=== PATIENT | female | born 1950 | race Caucasian/White ===

== ENCOUNTER 2016-12-22 20:09 | Emergency (ER) | payer MEDICARE, OTHER ==
--- NOTE | ~2016-12-22 | EKG ---
PATIENT: JUAN MARCH UNIT #: [id number] Ventricular Rate: 71 BPM Atrial Rate: 71 BPM P-R Interval: 150 ms QRS Duration: 74 ms Q-T Interval: 416 ms QTC Calculation(Bezet): 452 ms P [place]: 37 degrees Calculated R [place]: -13 degrees Calculated T [place]: 18 degrees Diagnosis Line: Normal sinus rhythm Diagnosis Line: Minimal voltage criteria for LVH, may be normal Diagnosis Line: variant Diagnosis Line: Inferior infarct , age undetermined Diagnosis Line: Abnormal ECG Diagnosis Line: When compared with ECG of 27-MAY-2016 18:15, Diagnosis Line: Inferior infarct is now Present Diagnosis Line: Confirmed by ANNIKA SIMPSON MD ([id number]) on Diagnosis Line: 12/23/2016 4:36:20 PM INTERPRETING MD: TATIANA MELO
--- NOTE | ~2016-12-22 | MR18 ---
[facility] A Service of [facility] RADIOLOGY TEXT RESULTS PATIENT: JUAN MARCH LOCATION: [place] : 51 UNIT #: [id number] AGE: [address]: Robert Raines MD SEX: F ORDER DR: [id number] [facility] [address] [place], [place] [address] [id number] E MR#: [id number] Acc #: [id number] NAME: JUAN MARCH. : 1950 SEX: F STUDY DATE/TIME: 12/22/2016 22:03 UNIT: [facility] ROOM: STUDY DESCRIPTION: MR Brain Wo Contrast Attending Physician: Robert Raines M.D. Ordering Physician: Robert Raines M.D. Primary Care Physician: Casandra Saunders M.D. MRI CENTER REPORT This report is preliminary unless electronic signature is present. EXAM Brain MRI without contrast PROCEDURE Routine unenhanced brain MRI 12/22/[address] 12/22/2016 CLINICAL HISTORY New onset left arm weakness and numbness this morning. FINDINGS There is no MR evidence of acute ischemia or other restricted diffusion. There is no intracranial hemorrhage or hydrocephalus or extraaxial fluid collection. There is minimal nonspecific white matter change. Brain parenchymal signal is certainly normal for age. Normal flow voids are seen in the cerebral vessels. Bone marrow signal is normal and the extracranial structures are normal. IMPRESSION No evidence of hemorrhage or mass or acute ischemia. Mild nonspecific white matter change, essentially normal for age brain MRI without contrast. Dictated by... Albert Reyes M.D. THIS IS AN ELECTRONICALLY VERIFIED REPORT Albert Reyes M.D. at 12/29/2016 10:43 AM JENNIFER/catracho [facility] A Service of [facility] RADIOLOGY TEXT RESULTS PATIENT: JUAN MARCH LOCATION: [place] : 51 UNIT #: [id number] AGE: [address]: Robert Raines MD SEX: F ORDER DR: TD: 12/23/2016 08:58 JOB #: [id number] MRI CENTER REPORT Page 1 of 1 COPY
--- NOTE | ~2016-12-22 | CR63 ---
[facility] A Service of [facility] & [facility] RADIOLOGY TEXT RESULTS PATIENT: JUAN MARCH LOCATION: [facility] : 51 UNIT #: [id number] AGE: [address]: Robert Raines MD SEX: F ORDER DR: [id number] [facility] [address] [place], [place] [address] [id number] E MR#: [id number] Acc #: [id number] NAME: JUAN MARCH : 1950 SEX: F STUDY DATE/TIME: 12/22/2016 21:36 UNIT: [facility] ROOM: STUDY DESCRIPTION: CR Chest 2 View Attending Physician: Robert Raines M.D. Ordering Physician: Karolina De M.D. Primary Care Physician: Casandra Saunders M.D. MEDICAL IMAGING REPORT This report is preliminary unless electronic signature is present EXAM Chest x-ray 12/22 HISTORY Chest pain, fever, shortness of air, left arm numbness. Symptoms started yesterday. History of hypertension. TECHNIQUE/COMPARISON 2 views of the chest are compared with 03/28/2015 FINDINGS Lungs are clear except for scattered granulomatous calcifications. Cardiac and mediastinal contours are normal. There is no pneumothorax. IMPRESSION No active disease. Dictated by... Minesh Leal Jr., M.D. THIS IS AN ELECTRONICALLY VERIFIED REPORT Minesh Leal Jr., M.D. at 12/23/2016 8:00 AM RLK/rosy TD: 12/22/2016 22:49 JOB #: [id number] MEDICAL IMAGING REPORT Page 1 of 1 COPY
--- NOTE | ~2016-12-22 | CT71 ---
[facility] A Service of [facility] RADIOLOGY TEXT RESULTS PATIENT: JUAN MARCH LOCATION: [facility] : 51 UNIT #: [id number] AGE: [address]: Robert Raines MD SEX: F ORDER DR: [id number] [facility] [address] [place], [place] [address] [id number] E MR#: [id number] Acc #: [id number] NAME: JUAN MARCH. : 1950 SEX: F STUDY DATE/TIME: 12/22/2016 19:11 UNIT: [facility] ROOM: STUDY DESCRIPTION: CT Head Wo Contrast Attending Physician: Robert Raines M.D. Ordering Physician: Karolina De M.D. Primary Care Physician: Casandra Saunders M.D. MEDICAL IMAGING REPORT This report is preliminary unless electronic signature is present EXAM CT of the head without contrast INDICATIONS Right arm numbness starting last night and continuing into this morning. TECHNIQUE Axial CT images were obtained from the vertex of the skull through the skull base. No intravenous contrast was administered. This CT exam was performed with one or more of the following radiation dose reduction techniques: automatic exposure control, adjustment of mA and/or kV according to patient size, and iterative reconstruction. FINDINGS No acute intracranial hemorrhage is identified. I think the patient probably does have some mild periventricular and deep white matter microangiopathic disease. I do not see definite focal areas of decreased attenuation. There is no midline shift or mass effect. Visualized paranasal sinuses and mastoid air cells are clear. No focal soft tissue abnormalities are seen. IMPRESSION No acute intracranial process identified. Specifically, there is no evidence of acute hemorrhage, mass lesion or acute infarct. If symptoms persist, consideration for MRI is suggested. Dictated by... Adelaida Pulliam M.D. THIS IS AN ELECTRONICALLY VERIFIED REPORT [facility] A Service [facility] RADIOLOGY TEXT RESULTS PATIENT: JUAN MARCH LOCATION: [facility] : 51 UNIT #: [id number] AGE: [address]: Robert Raines MD SEX: F ORDER DR: Adelaida Pulliam M.D. at 12/24/2016 7:56 AM AFF/pcl TD: 12/22/2016 21:19 JOB #: [id number] MEDICAL IMAGING REPORT Page 1 of 1 COPY
[2016-12-22 18:48] LABS: BASOPHIL% 0.4 % (0-2.5); EOSINOPHIL# 0.3 X10e3 (0-0.7); EOSINOPHIL% 2.5 % (0.0-7.0); HEMOGLOBIN 13.5 gm/dL (12.0-16.0); LYMPHOCYTE# 4.8 X10e3 (1.0-3.5); LYMPHOCYTE% 39.1 % (17.0-45.0); MEAN CORPUSCULAR HEMOGLOBIN 30.3 PG (28-34); MEAN CORPUSCULAR HGB CONC 32.9 g/dL (30-36); MEAN PLATELET VOLUME 9.1 FL (6.5-11.5); MONOCYTE# 0.8 X10e3 (0-1.0); MONOCYTE% 6.3 % (3.0-12.0); NEUTROPHIL# 6.4 X10e3 (1.5-7.1); NEUTROPHIL% 51.7 % (40-75); PLATELET COUNT 286 X10e3 (140-420); RED BLOOD COUNT 4.46 X10e (3.90-5.30); RED CELL DISTRIBUTION WIDTH 14.9 % (11.0-15.5); WHITE BLOOD COUNT 12.3 X10e3 (4.0-10.5)
[2016-12-22 18:53] LABS: DIFF IND NO
[2016-12-22 19:04] LABS: INR 3.8; PARTIAL THROMBOPLASTIN TIME 44.8 SECONDS (23.5-31.3)
[2016-12-22 19:12] LABS: ALBUMIN SERUM 4.1 g/dL (3.5-5.0); BILIRUBIN, DIRECT 0.1 mg/dL (0.0-0.2); BILIRUBIN,INDIRECT 0.4 mg/dL (0.0-0.9); BILIRUBIN,TOTAL 0.5 mg/dL (0.2-2.0); BUN/CREATININE RATIO 22.14; CALCIUM SERUM 9.3 mg/dL (8.4-10.2); CREATININE SERUM 1.4 mg/dL (0.6-1.4); GLOM FILT RATE Estimated 39.3 mL/min (>60); POTASSIUM 4.1 mmol/L (3.5-5.1); PROTEIN TOTAL SERUM 7.7 g/dL (6.0-8.3)
[2016-12-22 19:34] LABS: PROTHROMBIN TIME (PATIENT) 42.3 SECONDS (9.6-11.5)
[~2016-12-22 20:09] MED LIST: ALLEGRA PO; ALPRAZOLAM; ATACAND; AVINZA; COUMADIN PO; COUMADIN5 MG PO; COZAAR100 MG PO; DESYREL100 MG PO; DESYREL50 MG PO; DIAZEPAM PO; DIFLUCAN100 MG PO; EFFEXOR; GABAPENTIN400 M2 PO; GABAPENTIN400 MG PO; HYDROCHLOROTHIA25 MG PO; HYDROCODON-ACE1 EA11 PO; HYDROCODON-ACE1 EAC5 PO; LASIX20 MG PO; MONTELUKAST SOD10 MG PO; NEXIUM PO; NITROGLYGERIN0.4 MG SL; PHENERGAN25 M1 PO; PHENERGAN25 MG PO; PROZAC PO; SIMVASTATIN10 MG PO; TIZANIDINE HCL4 M1 PO; TOPROL XL PO; TOPROL XL100 MG PO; TRAMADOL HCL50 M1 PO; TRAZODONE PO; ZOCOR20 MG PO; ZOLOFT100 MG PO; ZOLOFT50 MG PO
[2016-12-22 21:29] LABS: URINE SOURCE CLEAN CATCH
[2016-12-22 21:36] LABS: URINE APPEARANCE CLEAR; URINE BILIRUBIN NEG (NEG); URINE BLOOD NEG (NEG); URINE COLOR YELLOW; URINE GLUCOSE NEG (NEG); URINE KETONE NEG (NEG); URINE LEUKOCYTE ESTERASE 2+ (NEG); URINE NITRATE NEG (NEG); URINE PROTEIN NEG (NEG); URINE SPECIFIC GRAVITY 1.019 (1.003-1.035); URINE UROBILINOGEN 0.2 MG/DL (NEG)
[2016-12-22 21:37] LABS: CULTURE INDICATED? YES; URBCS1 AUWI 0-2 /[HPF] (0-2); URINE BACTERIA AUWI NEG (NEGATIVE); URINE SQUAMOUS EPITHELIAL CELL OCC /[HPF]; UWBCS1 AUWI 25-50 (0-5)
[2016-12-22 22:05] LABS: U HYALINE CASTS AUWI 0-2 /[LPF]
[2017-01-05] MEDS ORDERED: COUMADIN5 MG PO (11:59)
[2017-01-05] MEDS ORDERED: METOPROLOL SUC100 MG PO (12:00)
[2017-01-05] MEDS ORDERED: LISINOPRIL20 MG PO (12:01)
[2017-01-05] MEDS ORDERED: VICODIN PO (12:03)
[2017-01-05] MEDS ORDERED: ZOLOFT100 MG PO (12:05)
[2017-01-05] MEDS ORDERED: SIMVASTATIN20 MG PO (12:05)
[2017-01-05] MEDS ORDERED: NEXIUM PO (12:06)
[2017-01-05] MEDS ORDERED: DIAZEPAM PO (12:06)
[2017-01-05] MEDS ORDERED: DESYREL50 MG PO (12:08)
[2017-01-05] MEDS ORDERED: GABAPENTIN300 M2 PO (12:08)
[2017-01-05] MEDS ORDERED: TRIGLIDE160 M1 PO (12:09)
[2017-01-06] MEDS ORDERED: HYDROCODON-ACE1 EAC5 PO (10:28)
== END 2016-12-22 23:20 | disposition home or self-care (01) ==
LOC: CED 20:09
PROVIDERS: Emergency Medicine
DX: R20.2 Paresthesia of skin (principal); R53.1 Weakness; I10 Essential (primary) hypertension; F17.210 Nicotine dependence, cigarettes, uncomplicated; Z90.49 Acquired absence of other specified parts of digestive tract; Z90.710 Acquired absence of both cervix and uterus; Z86.73 Personal history of transient ischemic attack (TIA), and cerebral infarction without residual deficits; Z79.01 Long term (current) use of anticoagulants
CPT/HCPCS: 70450; 70551; 71020; 80048; 80076; 81003; 85025; 85610; 85730; 87086; 93005; 99284

== ENCOUNTER → 2017-01-06 | Day surgery (SDC) | payer MEDICARE, OTHER ==
[~2017-01-06] MED LIST changes: +GABAPENTIN300 M2 PO; +LISINOPRIL20 MG PO; +METOPROLOL SUC100 MG PO; +SIMVASTATIN20 MG PO; +TRIGLIDE160 M1 PO; +VICODIN PO
--- NOTE | ~2017-01-06 | OR ---
Unit #: [id number] #: [id number] Patient: JUAN MARCH [id number] [address] [address] [id number] O MR#: [id number] NAME: JUAN MARCH ROOM: Date of Procedure: 01/06/2017 Admission Date: 01/06/2017 Surgeon: Blaze Hubbard M.D. : 1950 Attending Physician: Blaze Hubbard M.D. Primary Care Physician: Casandra Saunders M.D. OPERATIVE REPORT JOB NOTE: CC: PAIN CENTER. PREOPERATIVE DIAGNOSES 1. Back pain. 2. Radiculopathy. 3. Degenerative disk disease. POSTOPERATIVE DIAGNOSES 1. Back pain. 2. Radiculopathy. 3. Degenerative disk disease. PROCEDURE PERFORMED Lumbar epidural steroid injection with intravenous sedation and fluoroscopic guidance for needle localization. INDICATIONS FOR PROCEDURE The patient is a 66-year-old female with return of previously mentioned diagnosis. She is not a surgical candidate. She has been treated with epidural steroid injections getting about 6 months of improvement with injections. Last injections were completed about 8 months ago. She did well until last month or so. DESCRIPTION OF PROCEDURE The patient was placed in a seated position. Standard monitors were applied. 4 mg of Versed was given for sedation and anxiolysis, which were adequate. Vital signs remained stable. Sterile prep and drape then of the lumbar area was performed. The skin then at the right of midline at the L4 level was localized with 1% lidocaine. An 18-gauge Hustead needle was then advanced via right paramedian approach and loss of resistance technique in toward the epidural space. After confirming proper positioning with fluoroscopy and radiographic contrast, 80 mg of Depo-Medrol and 6 mL of 0.125% bupivacaine were deposited. The patient tolerated the procedure otherwise well and was discharged to the recovery room in stable condition. Dictated by... Blaze Hubbard M.D. LHP/modl Unit #: [id number] #: [id number] Patient: JUAN MARCH TD: 01/06/2017 23:49 JOB #: [id number] OPERATIVE REPORT Page 1 of 1 X Blaze Hubbard MD X PROCEDURE OPERATIVE NOTE
== END | disposition home or self-care (01) ==
LOC: CCSC 09:48
DX: M51.16 Intervertebral disc disorders with radiculopathy, lumbar region (principal); K21.9 Gastro-esophageal reflux disease without esophagitis; I10 Essential (primary) hypertension; I25.2 Old myocardial infarction; M19.90 Unspecified osteoarthritis, unspecified site; Z86.711 Personal history of pulmonary embolism
CPT/HCPCS: J1040; J2250

== ENCOUNTER → 2017-01-30 | Outpatient (CLI) | payer MEDICARE, OTHER ==
--- NOTE | ~2017-01-30 | CR181 ---
[facility] A Service of [facility] RADIOLOGY TEXT RESULTS PATIENT: JUAN MARCH LOCATION: [facility] : 52 UNIT #: [id number] AGE: [address]: Blaze Hubbard MD SEX: F ORDER DR: [id number] [facility] [address] [place], [place] [address] [id number] O MR#: [id number] Acc #: [id number] NAME: JUAN MARCH. : 1950 SEX: F STUDY DATE/TIME: 01/30/2017 14:23 UNIT: [facility] ROOM: STUDY DESCRIPTION: CR Lumbar Spine 2 or 3 Views Attending Physician: Blaze Hubbard M.D. Ordering Physician: Blaze Hubbard M.D. MEDICAL IMAGING REPORT This report is preliminary unless electronic signature is present EXAM Lumbar spine series, 3 views. HISTORY Evaluate for possible new compression fracture. Patient has lumbar spine pain, numbness and shooting pains through right leg. Symptoms started last May. COMMENT AP, lateral lumbosacral views lumbar spine reviewed. COMPARISON There is comparison study from 09/08/15. FINDINGS Patient has had an interval kyphoplasty at L1 since that time. There is chronic anterior wedging at the L1 vertebral body level. There is probably some component of retrolisthesis of L1 with respect to L2, new from previous. The fracture is new from previous. The retrolisthesis measures about 5 mm. There is a film from 05/22/16 which shows a mild L1 compression fracture, but again the malalignment appears new from that time. Kyphoplasty is new from that time also. Suggest correlation with flexion and extension plain films for further evaluation. Bones are somewhat demineralized in general. There is multilevel lower lumbar facet arthritis. Anterior endplate spondylosis also at T11-12 and L1-2. IMPRESSION 1. There is a compression fracture at L1 treated with kyphoplasty cement. The compression fracture was present 05/22/16. The cement is new since that time. On the lateral film provided today, there is suspicion of some retrolisthesis of L1 with respect to L2 by about 5 mm new from the April exam. I would therefore recommend correlation with flexion and extension plain films of the lumbar STS. [facility] A Service of [facility] RADIOLOGY TEXT RESULTS PATIENT: JUAN MARCH LOCATION: [facility] : 52 UNIT #: [id number] AGE: [address]: Blaze Hubbard MD SEX: F ORDER DR: spine for further evaluation. Otherwise, redemonstrated is multilevel facet arthritis most apparent at lower lumbar levels. The bones are likely demineralized. Dictated by... Sweta Paez M.D. THIS IS AN ELECTRONICALLY VERIFIED REPORT Sweta Paez M.D. at 01/30/2017 8:26 PM ELSI/isaiah TD: 01/30/2017 18:40 JOB #: [id number] MEDICAL IMAGING REPORT Page 1 of 1 COPY
== END | disposition home or self-care (01) ==
LOC: CLAB 13:58
DX: M54.5 Low back pain (principal); R20.0 Anesthesia of skin; M79.604 Pain in right leg; M46.96 Unspecified inflammatory spondylopathy, lumbar region; Z98.890 Other specified postprocedural states; Z87.311 Personal history of (healed) other pathological fracture
CPT/HCPCS: 72100

== ENCOUNTER → 2017-02-03 | Day surgery (SDC) | payer MEDICARE, OTHER ==
--- NOTE | ~2017-02-03 | OR ---
Unit #: [id number] #: [id number] Patient: JUAN MARCH [id number] [address] [place], [place] [address] [id number] O MR#: [id number] NAME: JUAN MARCH ROOM: Date of Procedure: 02/03/2017 Admission Date: 02/03/2017 Surgeon: Blaze Hubbard M.D. : 1950 Attending Physician: Blaze Hubbard M.D. Primary Care Physician: Casandra Saunders M.D. OPERATIVE REPORT JOB NOTE: CC: PAIN CENTER PREOPERATIVE DIAGNOSES Back pain, radiculopathy, degenerative disk disease, lumbar compression fracture. POSTOPERATIVE DIAGNOSES Back pain, radiculopathy, degenerative disk disease, lumbar compression fracture. PROCEDURE PERFORMED Lumbar epidural steroid injection with intravenous sedation and fluoroscopic guidance for needle localization. INDICATIONS FOR PROCEDURE The patient is a 66-year-old female with worsening back and bilateral lower extremity pain. She has done well in the past with epidural steroids to settle her symptom complex. Repeat injection done about 4 weeks ago, which does not repeat result of usual good improvement that she has gotten in the past. Plan is to repeat the injection today at the slightly different travertine installer to see if she gets better response. DESCRIPTION OF PROCEDURE The patient was placed in the seated position. Standard monitors were applied. 2 mg of Versed were given for sedation and anxiolysis, which were adequate. Vital signs remained stable. Sterile prep and drape then of the lumbar area was performed. The skin then to the right of midline at the L4-L5 level was localized with 1% lidocaine. An 18-gauge Nanoradiotead needle was then advanced via right paramedian approach and loss of resistance technique in toward the epidural space. The patient did not complain of any pain or paresthesia during needle advancement. After confirming proper positioning with fluoroscopy and radiographic contrast, 80 mg of Depo-Medrol and 6 mL of 0.125% bupivacaine were deposited. The patient tolerated the procedure well and was discharged to recovery room in stable condition. Dictated by... Blaze Hubbard M.D. LHP/modl Unit #: [id number] #: [id number] Patient: JUAN MARCH TD: 02/04/2017 01:25 JOB #: [id number] OPERATIVE REPORT Page 1 of 1 X Blaze Hubbard MD X PROCEDURE OPERATIVE NOTE
== END | disposition home or self-care (01) ==
LOC: CCSC 10:01
DX: M51.16 Intervertebral disc disorders with radiculopathy, lumbar region (principal); M48.56XA Collapsed vertebra, not elsewhere classified, lumbar region, initial encounter for fracture; F41.9 Anxiety disorder, unspecified; I10 Essential (primary) hypertension; I25.2 Old myocardial infarction; M19.90 Unspecified osteoarthritis, unspecified site; F32.9 Major depressive disorder, single episode, unspecified; K21.9 Gastro-esophageal reflux disease without esophagitis; Z86.711 Personal history of pulmonary embolism; Z79.01 Long term (current) use of anticoagulants; Z79.891 Long term (current) use of opiate analgesic; Z79.899 Other long term (current) drug therapy
CPT/HCPCS: J1040; J2250